=== PATIENT | female | born 1955 | race Caucasian/White ===

== ENCOUNTER 2025-03-19 17:09 | Emergency (ER) | payer MEDICARE, OTHER ==
[~2025-03-19] VITALS: Ht 147.3 cm; Wt 72.6 kg
[2025-03-19] MEDS ORDERED: Ketorolac Tromethamine 15mg Vial IM ONE (19:10)
== END 2025-03-19 20:06 | disposition left against medical advice (07) ==
LOC: ER 17:09
DX: S52.572A Other intraarticular fracture of lower end of left radius, initial encounter for closed fracture (principal); S42.212A Unspecified displaced fracture of surgical neck of left humerus, initial encounter for closed fracture; W18.30XA Fall on same level, unspecified, initial encounter
CPT/HCPCS: 73060; 73080; 73130; 96372; 99281-25; J1885